=== PATIENT | female | born 1990 | race Caucasian/White ===

== ENCOUNTER 2018-07-20 09:05 | Day surgery (SDC) | payer OTHER ==
[2018-07-20] MEDS: OXYMETAZOLINE HCL 0.05% 15ML NAS ONE ×4 (09:08→11:48)
--- OUTSIDE RECORDS SUMMARY | 2018-07-20 09:11 | XMS REPORT | Clinical Summary ---
:1990 Author Organization [facility] Address [address] [place] [id number] Care Team Providers Name Role Phone Irina Suresh Primary Care Provider Allergies No Known Allergies Medications Medication Sig Dispensed Refills Start Date End Date Status SAFYRAL 3-0.03-0.451 mg TAKE ONE (1) 3 11/01/2016 Active (21) (7) tablet TABLET(S) BY MOUTH ONCE A DAY. gabapentin (NEURONTIN) 300 TAKE TWO (2) 4 09/03/2016 Active mg capsule CAPSULE(S) BY MOUTH TWICE A DAY. hydroxychloroquine TAKE ONE (1) 4 09/03/2016 Active (PLAQUENIL) 200 mg tablet TABLET(S) BY MOUTH TWICE A DAY. Active Problems No known active problems Family History Relation Name Status Comments Father Alive Mother Alive Social History Tobacco Use Types Packs/Day Years Used Date Never Smoker Alcohol Use Drinks/Week oz/Week Comments No Sex Assigned at Date Recorded Not on file Job Start Date Occupation Industry Not on file Not on file Not on file Travel History Travel Start Travel End No recent travel history available. Last Filed Vital Signs Not on file Plan of Treatment Health Maintenance Due Date Last Done Comments CERVICAL CANCER SCREENING 10/23/2012 INFLUENZA VACCINE 11/15/2018 Results Not on fileafter 07/19/2017 Insurance Payer Benefit Plan / Group Subscriber ID Type Phone Address BCBS BCBS CHOICE PPO/FEDERAL EMPL PPO xxxxxxxxxxxx PPO Advance Directives Patient has advance care planning documents on file. For more information, please contact:Alfredo [id number] [place] [place] [address]
[2018-07-20] MEDS ORDERED: Ringers Lactate 1,000 ML IV ONE (09:39)
[2018-07-20] MEDS ORDERED: PROPOFOL 200 MG/20 ML VIAL IV ONE (10:42)
[2018-07-20] MEDS ORDERED: DEXAMETHASONE 10 MG/ML VIAL ONE (10:43)
[2018-07-20] MEDS ORDERED: LIDOCAINE 2% MPF 5 ML VIAL ONE (10:43)
[2018-07-20] MEDS ORDERED: FENTANYL CITR 250 MCG/5 ML ONE (10:44)
[2018-07-20] MEDS ORDERED: ROCURONIUM 50 MG/5 ML VIAL IV ONE (10:44)
[2018-07-20] MEDS ORDERED: MIDAZOLAM HCL 2 MG/2 ML INJ ONE (10:46)
[2018-07-20] MEDS ORDERED: ONDANSETRON 4 MG/2 ML VIAL ONE (10:46)
[2018-07-20] MEDS ORDERED: LIDOCAINE 1.5% W/EPI AMP 5 ML ONE (11:12)
[2018-07-20] MEDS ORDERED: OXYMETAZOLINE HCL 0.05% 15ML NAS ONE (11:12)
[2018-07-20] MEDS ORDERED: NA CHLORIDE 0.9% 500 ML ONE (11:12)
--- NOTE | 2018-07-20 13:17 | P.BOP ---
Preoperative diagnosis: CRS Postoperative diagnosis: same Primary procedure: NE with B max, total ethmoid and frontal sinusotomy Bulk Sealer: NONE,NONE Estimated blood loss: 50ml Specimen: sinonasal trimmings Findings: thick white mucoid in R ethmoid Anesthesia: General Complications: None Implants: Propel in bilateral ethmoids Fluids & blood products: crystalloid 650ml Transferred to: Recovery Room Condition: Good
[2018-07-20] MEDS ORDERED: TRAMADOL HCL 50 MG TAB ONE (14:59)
--- NOTE | 2018-07-22 18:59 | OP ---
Date of Procedure: 07/20/2018 Surgeon: Aidee Fisher MD Preoperative Diagnoses: Chronic rhinosinusitis. Postoperative Diagnosis: Chronic rhinosinusitis. Procedures: Bilateral nasal endoscopy, total ethmoidectomy and frontal sinusotomy with use of [employer] AB intra-navigational CT extradural navigation. Indications For Procedure: The patient presented to the clinic with symptoms of chronic rhinosinusit is. She was treated with maximal medical therapy and underwent post treatment CT scanning in April , which demonstrated persistent opacification and mucosal thickening of the maxillary and ethmoid sin uses as well as the frontal recess. The risks, benefits, and alternatives to the procedure were disc ussed with the patient, who agreed to proceed. Description Of Procedure: The patient was brought to the operating room. She was placed under gener al anesthesia via oral endotracheal tube. The head of bed was turned 90 degrees. The nasal hairs we re trimmed and the nasal cavity was packed with Afrin-soaked pledgets. The [employer] navigation syste m was secured to the patient's forehead and registration was performed using the laser pointer. Accu racy was confirmed in jklbw-ju-unwyw registration including the tip of the nose, base of the columell a, glabella and the bilateral lateral canthi and precision was felt to be excellent. The patient was then draped in standard fashion for sinus surgery. Nasal pledgets were removed and a 0-degree endos cope was used to perform a nasal endoscopy. The right nasal cavity was examined. The middle turbina te was noted to be wide, consistent with preoperative findings suggestive of dima bullosa. A sickl e knife was used to incise the middle turbinate and the lateral portion of the dima was removed usi ng scissors and a straight Blakesley. After this, the middle turbinate was medialized and the uncina te process was removed using backbiter and 90-degree Blakesley. The 30 degree scope was used for bet ter visualization and the maxillary antrostomy was enlarged using a 90-degree Blakesley. The antrost reena was noted to be of adequate size and included the natural os. A 0-degree endoscope was then used to visualize the anterior ethmoid cavity. A curette was used to divide the partitions and partition s were removed using a straight 90 and 45-degree Blakesley. The straight navigation suction was used during dissection to verify the location of the lamina propria as well as the skull base superiorly and posteriorly. After adequate dissection to the base of the sphenoid, a 30-degree scope was used f or better visualization and partitions removed from along the skull base. The frontal sinus opening was then visualized using a 70 degree endoscope and bony partitions were removed using the front-to-b ack and ywxn-gy-ysmu Giraffe. Afrin-soaked pledgets were then placed within the sinus cavities to ai d in hemostasis and attention was turned to the left side. The left septum was trghzb-qu-qmrfhxghjk seated making dissection more difficult, but decision was made to forego septoplasty. The middle tur binate had a small dima and rather than dividing this, the dima was crushed and decreased in size during medialization of the middle turbinate. The uncinate process was then removed using a backbit er and 90-degree Blakesley. A 30-degree endoscope was used for better visualization and the maxillar y antrostomy was enlarged using a 90-degree Blakesley. The mucosa in the maxillary sinus was minimal ly edematous at the time of this dissection. There was no gross purulence noted within the sinus cav ity. Care was taken to assure that the antrostomy included the natural os opening to avoid issues of recirculation. A 0-degree endoscope was then used for visualization of the ethmoid cavity and then straight and curved navigation suction were used during dissection to identify landmarks including th e lamina and the skull base. The curette and Blakesley were used to remove the ethmoid partitions go ing posteriorly to the face of the sphenoid and extending to the skull base. The 30 and 70 degree sc opes were then used for better visualization of the anterior skull base, but identification of the fr ontal sinus was difficult. The Entellus balloon device was then used to probe along and aid in ident ification of the frontal recess. Once identified, the balloon was inflated and then deflated along t he path of the frontal recess and a 70 degree scope as well as zglrh-mi-ehni and dikk-jh-bsuf Giraffe were used to remove bony partitions along the recess. After review of the CT scan and re-examinatio n of the right frontal recess area, concern was for failure to cannulate and identify the true fronta l recess. The balloon Entellus device was again used to probe along the right anterior skull base an d the previously identified area thought to be the frontal sinus was confirmed to be a prominent supe rior ethmoid cell. The true frontal recess was located just posteriorly to this using the balloon an d after dilation, bony partitions were removed and the true frontal sinus was identified. After comp letion of this dissection, the sinuses were thoroughly irrigated and suctioned. A standard size Prop el steroid-eluting stent was deployed into the ethmoid sinuses in order to prevent lateralization of the middle turbinate and to provide steroid during the healing process for local drug delivery. The nasopharynx was thoroughly suctioned and the patient was returned to care of anesthesia for awakening and extubation in the operating room, which proceeded without difficulty. Complications: None. Disposition: The patient will be discharged later today and follow up with Dr. Fisher in [facility] 10-12 days for removal of stents and evaluation of healing. JORGE L/RAMESH Voice ID: [id number] Report ID: [id number]
== END 2018-07-20 15:35 | disposition home or self-care (01) ==
LOC: OR 09:05
PROVIDERS: ATTEND Otolaryngology
PROC: 09BT8ZZ Excision of Left Frontal Sinus, Via Natural or Artificial Opening Endoscopic (ICD-10-PCS; 2018-07-20)
PROC: 09BS8ZZ Excision of Right Frontal Sinus, Via Natural or Artificial Opening Endoscopic (ICD-10-PCS; 2018-07-20)
PROC: 8E09XBZ Computer Assisted Procedure of Head and Neck Region (ICD-10-PCS; 2018-07-20)
PROC: 09TL8ZZ Resection of Nasal Turbinate, Via Natural or Artificial Opening Endoscopic (ICD-10-PCS; 2018-07-20)
PROC: 09BV8ZZ Excision of Left Ethmoid Sinus, Via Natural or Artificial Opening Endoscopic (ICD-10-PCS; principal; 2018-07-20 12:00)
PROC: 09BU8ZZ Excision of Right Ethmoid Sinus, Via Natural or Artificial Opening Endoscopic (ICD-10-PCS; 2018-07-20 12:00)
DX: J34.2 Deviated nasal septum (principal); J34.89 Other specified disorders of nose and nasal sinuses; J34.3 Hypertrophy of nasal turbinates; J32.4 Chronic pansinusitis; M79.7 Fibromyalgia; Z79.899 Other long term (current) drug therapy
CPT/HCPCS: 81025; 88304; 88311; J1100; J2001; J2250; J2405; J2704; J3010